=== PATIENT | female | born 1995 | race Caucasian/White ===

== ENCOUNTER 2018-11-03 15:20 | Emergency (ER) | payer MEDICAID ==
[~2018-11-03] VITALS: Ht 162.6 cm; Wt 50.0 kg
[2018-11-03] MEDS ORDERED: IBUPROFEN 800 MG TABLET PO ONE (16:30)
[2018-11-03] MEDS ORDERED: SULFAMETHOX/TRIMETH DS 800-160 MG/TABLET PO ONE (17:00)
[2018-11-03] MEDS ORDERED: CEPHALEXIN MONOHYDRATE 500 MG CAPSULE PO ONE (17:00)
[2018-11-03 17:10] VITALS: BP 116/69
== END 2018-11-03 17:43 | disposition home or self-care (01) ==
LOC: EMS 15:21
DX: L03.116 Cellulitis of left lower limb (principal)